=== PATIENT | female | born 1935 | race Caucasian/White ===

== ENCOUNTER → 2016-10-13 | Outpatient (CLI) | payer OTHER, MEDICARE | LOC: FIMAGING 15:05 | PROVIDERS: ATTEND Internal Medicine | DX: Z12.31 Encounter for screening mammogram for malignant neoplasm of breast (principal) | CPT/HCPCS: G0202 ==

== ENCOUNTER 2017-01-12 05:42 | Day surgery (SDC) | payer OTHER, MEDICARE ==
[2017-01-12 06:30] VITALS: PULSE 54
[2017-01-12] MEDS ORDERED: LR 1,000 ML IV ONE (06:31)
[2017-01-12] MEDS ORDERED: LIDOCAINE 1% 2 ML INJ ID PRN (06:31)
[2017-01-12] MEDS ORDERED: BUPIVACAINE 0.5% 30 ML SDV ONE (06:51)
[2017-01-12] MEDS ORDERED: NS 1,000 ML IV ONE (07:01)
[2017-01-12] MEDS ORDERED: ceFAZolin 2 GM/DEXTROSE 100 ML IV ONE (07:10)
[2017-01-12] MEDS ORDERED: ACETAMINOPHEN 500 MG TAB PO ONE (07:10)
--- NOTE | 2017-01-12 07:10 | PDANEPAE ---
ANE History of Present Illness knee arthroscopy, ANE Past Medical History - Cardiovascular History Hx Hypertension: Yes Hx Arrhythmias: No Hx Chest Pain: No Hx Coronary Artery / Peripheral Vascular Disease: No Hx CHF / Valvular Disease: No Hx Palpitations: No Cardiovascular History Comment: LBBB - Pulmonary History Hx COPD: No Hx Asthma/Reactive Airway Disease: No Hx Recent Upper Respiratory Infection: No Hx Oxygen in Use at Home: No Hx Sleep Apnea: No Sleep Apnea Screening Result - Last Documented: Negative - Neurologic History Hx Cerebrovascular Accident: No Hx Seizures: No Hx Dementia: No - Endocrine History Hx Diabetes: No - Renal History Hx Renal Disorders: Yes Renal History Comment: CHRONIC UTI. 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 BEGINNING OF GLAUCOMA. 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 ANAL SURGERY. PARATHYROIDECTOMY. LUMBAR FUSION ANE Review of Systems Review of Systems: - Exercise capacity METS (RN): 6 METS ANE Patient History - Allergies Allergies/Adverse Reactions: glucosamine Allergy (Verified 12/25/16 12:20) LEG SWELLING sodium Allergy (Verified 12/25/16 12:19) SENSITIVE HAS CKD - Home Medications Home Medications: Calcitriol [Calcitriol (*)] 0.25 mcg PO MOWEFR@12 02/13/12 [Last Taken 02/10/12 12:00] Diphenoxylate HCl/Atrop Sulf [Lomotil Tab (*)] 1 tab PO PRN PRN 02/13/12 [Last Taken Unknown] Furosemide [Lasix 40 MG (*)] 40 mg PO BID 02/13/12 [Last Taken 02/12/12 09:00] Terazosin HCl 2 mg PO HS 02/13/12 [Last Taken Unknown] Amlodipine Besylate DAILY 12/25/16 [Last Taken Unknown] Amlodipine Besylate DAILY 12/25/16 [Last Taken Unknown] - NPO status NPO Since - Liquids (Date): 01/12/17 NPO Since - Liquids (Time): 03:00 NPO Since - Solids (Date): 01/11/17 NPO Since - Solids (Time): 21:00 - Smoking Hx Smoking Status: Never smoked Marijuana use: No - Alcohol Use Alcohol Use: Other (1 drink per day) ANE Labs/Vital Signs - Vital Signs Blood Pressure: 155/76 Heart Rate: 54 Respiratory Rate: 16 O2 Sat (%): 94 Height: 154.94 cm Weight: 67.132 kg ANE Physical Exam - Airway Neck exam: FROM Mallampati Score: Class 2 Mouth exam: normal dental/mouth exam (upper front cap) - Pulmonary Pulmonary: clear to auscultation - Cardiovascular Cardiovascular: regular rate and rhythym - ASA Status ASA Status: II ANE Anesthesia Plan Anesthesia Plan: GA w LMA
--- NOTE | 2017-01-12 07:10 | PDHPUP ---
History & Physical Update H&P update statement: This history and physical update is based on an assessment of the patient which was completed after admission or registration (within 24 hours), but prior to the surgery/procedure. H&P update: H&P reviewed & patient examined, no change in patient's condition since H&P completed
[2017-01-12] MEDS ORDERED: MIDAZOLAM 2 MG/2 ML VIAL IVP ONE (07:17)
[2017-01-12] MEDS ORDERED: MIDAZOLAM 2 MG/2 ML VIAL ONE (07:18)
[2017-01-12] MEDS ORDERED: PROPOFOL 200 MG/20 ML VIAL ONE ×2 (07:21→07:35)
[2017-01-12] MEDS ORDERED: PHENYLEPHRINE 10 MG/ML SDV ONE (07:25)
[2017-01-12] MEDS ORDERED: ONDANSETRON 4 MG/2 ML VIAL ONE ×2 (08:26→10:03)
[2017-01-12] MEDS ORDERED: METOCLOPRAMIDE 10 MG/2 ML VIAL IVP PRN (08:37)
[2017-01-12] MEDS ORDERED: PROMETHAZINE HCL 25 MG SUPPR PR PRN (08:37)
[2017-01-12] MEDS ORDERED: ONDANSETRON 4 MG/2 ML VIAL IVP PRN (08:37)
[2017-01-12] MEDS ORDERED: ONDANSETRON DISINTEGRATING 4 MG TAB PO PRN (08:37)
[2017-01-12] MEDS ORDERED: PROMETHAZINE HCL 25 MG/ML INJ IVP PRN (08:37)
[2017-01-12] MEDS ORDERED: oxyCODONE IR 5 MG TAB PO PRN (08:37)
[2017-01-12] MEDS ORDERED: CYCLOBENZAPRINE 10 MG TAB PO PRN (08:37)
[2017-01-12] MEDS ORDERED: KETOROLAC 30 MG/1 ML SDV IVP PRN (08:37)
--- NOTE | 2017-01-12 08:37 | POSTOPPROG ---
Post Op Note Date of Operation: 01/12/17 Surgeon: Cortney Christine Anesthesiologist: angelina Anesthesia: LMA Pre-op Diagnosis: l mmt/lmt/oa Procedure: l knee scope with partial m/l menisectomy with chondroplasty and synovectom Inf/Abcess present in the surg proc area at time of surgery?: No Depth: Deep Incisional (Fascial) EBL: 50-100
[2017-01-12] MEDS ORDERED: HYDROmorphONE/DILAUDID 1 MG/ML INJ IVP PRN (08:44)
[2017-01-12] MEDS ORDERED: OXYCODONE/APAP 5/325 TAB PO PRN (08:44)
[2017-01-12] MEDS ORDERED: HYDROCODONE/APAP 5/325 TAB PO PRN (08:44)
[2017-01-12] MEDS ORDERED: NALOXONE HCL 0.4 MG/ML INJ IVP PRN (08:44)
[2017-01-12] MEDS ORDERED: fentaNYL 100 MCG/2 ML INJ IVP PRN (08:44)
[2017-01-12] MEDS ORDERED: LR 1,000 ML IV SCH (09:00)
--- NOTE | 2017-01-12 09:47 | GOP ---
[f rep st] OPERATIVE REPORT DATE OF OPERATION: 01/12/2017 SURGEON: Cortney Christine MD ANESTHESIA: LMA. 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 Lateral meniscal tear. Grade 4 chondral changes to patchy areas of the patellofemoral joint and of the medial compartment, as well as grade 3 chondral changes of the lateral compartment. PROCEDURE PERFORMED: Left knee arthroscopy with partial medial and partial lateral meniscectomy, cho ndroplasty. FINDINGS: INDICATIONS: This is an 81-year-old, very active female with left knee pain for several months that acutely worsened after a minor twist noted to the knee. MRI exam revealed medial meniscal tear, luis carlos g with some osteoarthritic changes. She wished to have surgery in order to resolve the problem. DESCRIPTION OF PROCEDURE: Patient brought to the operating room after the left side had been identif ied as correct side by the patient, nurse, and physician. Once in the operating room, she was placed under anesthesia using an LMA. Once asleep, a tourniquet was placed around the upper portion of lef t thigh, and both legs placed in appropriate leg huff. Left lower extremity was then sterilely pre pped and draped in usual fashion using GSI solution. Once prepped and draped, limb was exsanguinated , tourniquet inflated to 250 mmHg. An incision was made in the superomedial portion of the knee, wit h an outflow trocar inserted without difficulty. A second incision was made lateral to the patellar tendon, between the inferior pole of the patella and . The camera was introduced without d ifficulty. Inspection of the joint revealed an abundant amount of synovium within the knee, especial ly the anterior portion. ACL was noted to be intact. Inspection of the patellofemoral compartment r evealed some grade 3 chondral changes of the patella but some patchy grade 4 chondral changes to the trochlea, as well as some chondrocalcinosis. Inspection the medial compartment revealed tearing of t he body and posterior horn of the medial meniscus, with some patchy grade 4 chondral changes in the m edial compartment. There were grade 3 chondral changes in the lateral compartment with some minor fr aying noted of the posterior horn and body of the lateral meniscus. Therefore, a third incision was made medial to the patellar tendon, between the inferior pole of the patella and tibial plateau, and alternatingly using an arthroscopic biter and a shaver were used to debride and debulk tears of the m edial and lateral meniscus, remove the abundant amount of synovium from the anterior portion of the k nee, and remove the loose fragments of cartilage from all 3 compartments. Once completed, all instru ments were removed from the knee, with 30 cc of Marcaine infused in the knee joint. The 3 portal sit es were closed using 3-0 nylon suture in a yomkio-bj-trmin type stitch. The wounds were dressed with Xeroform, 4 x 4, wrapped in Kerlix. Tourniquet was deflated at 38 minutes. Leg was completely undr aped in the operating room. The leg was taken out of its leg huff, tourniquet removed from the thi gh, and an Gary wrap placed around the knee. Right leg was taken out of its leg huff. She was plac ed supine. She was woken up, extubated, transferred onto a stretcher, and sent to recovery room in g ood condition. TOURNIQUET TIME: 38 minutes. /[id number]/MODL
--- NOTE | 2017-01-12 10:38 | POSTANESTH ---
Post Anesthetic Evaluation Cardiovascular Status: Similar to Pre-Op Cond Respiratory Status: Normal, Stable Level of Consciousness/Mental Status: Can Participate in Eval Pain Control: Adequate, Prn Tx Ordered Nausea/Vomiting Control: Adequate, Prn Tx Ordered Complications Possibly Related to Anesthesia: None Noted
[2017-01-12 11:21] VITALS: RESP 16
[2017-01-12] MEDS ORDERED: ACETAMINOPHEN 325 MG TAB PO SCH (12:00)
[2017-01-12] MEDS ORDERED: OXYCODONE/APAP 5/325 TAB ONE (12:04)
[2017-01-12 13:20] VITALS: BP 143/54
[2017-01-12 18:44] VITALS: O2SAT 96
[2017-01-12 18:52] VITALS: TEMP 98.2
[2017-01-12] MEDS ORDERED: ASPIRIN 325 MG TAB PO SCH (21:00)
[2017-01-12] MEDS ORDERED: FAMOTIDINE 20 MG TAB PO SCH (21:00)
== END 2017-01-12 13:40 | disposition home or self-care (01) ==
LOC: FSGY 05:42
PROVIDERS: ATTEND Orthopaedic Surgery
PROC: 0SBD4ZZ Excision of Left Knee Joint, Percutaneous Endoscopic Approach (ICD-10-PCS; principal; 2017-01-12 07:15)
PROC: 0MQP4ZZ Repair Left Knee Bursa and Ligament, Percutaneous Endoscopic Approach (ICD-10-PCS; principal; 2017-01-12 07:15)
DX: S83.242D Other tear of medial meniscus, current injury, left knee, subsequent encounter (principal); M17.12 Unilateral primary osteoarthritis, left knee
CPT/HCPCS: J0171; J0690; J2250; J2370; J2405; J2704

== ENCOUNTER 2017-01-17 21:59 | Emergency (ER) | payer OTHER, MEDICARE ==
[2017-01-17 22:09] VITALS: TEMP 97.7
--- NOTE | 2017-01-17 22:39 | EDPHY ---
H & P Stated Complaint: Left knee surgery on 01/12 and now having left leg bruising Time Seen by Provider: 01/17/17 22:20 HPI/ROS: Chief Complaint: Leg swelling and bruising HPI: 81-year-old woman who is 6 days status post left meniscal repair by Dr. Christine. Patient noted increasing bruising and swelling of her left leg today. Is not painful. He has not had any chest pain or shortness of breath. No fevers or chills. No cough. She has been active. She has not been wearing compression stockings as she was concerned that this might affect her surgery. ROS: 10 point Review of Systems is negative except as noted in the HPI. PMH: Hypertension, renal insufficiency Social History: No smoking, no alcohol, no recreational drug use Family History: non-contributory Physical Exam: Gen: Awake, Alert, No Distress HEENT: Nose: no rhinorrhea Eyes: PERRLA, EOMI Mouth: Moist mucosa Neck: Supple, no JVD Chest: nontender, lungs clear to auscultation Heart: S1, S2 normal, no murmur Abd: Soft, non-tender, no guarding Back: no CVA tenderness, no midline tenderness Ext: Left leg is edematous with ecchymosis. She has got 3 surgical incision sites on her left knee which are non erythematous, there is no dehiscence. There is no discharge. Her left calf is nonpitting edema and is 3 cm in greater circumference than her right. It is non tenderness. She has 2+ dorsalis pedis pulses. Capillary refills less than 2 seconds. Skin: no rash Neuro: CN II-XII intact, Sensation grossly intact, Strength 5/5 in bilateral upper and lower extremities - Personal History Current Tetanus/Diphtheria Vaccine: Yes Current Tetanus Diphtheria and Acellular Pertussis (TDAP): Yes Tetanus Vaccine Date: unsure - Medical/Surgical History Hx Asthma: No Hx Chronic Respiratory Disease: No Hx Diabetes: No Hx Cardiac Disease: No Hx Renal Disease: Yes Hx Cirrhosis: No Hx Alcoholism: No Hx HIV/AIDS: No Hx Splenectomy or Spleen Trauma: No Other PMH: Left knee surgery, HTN, renal disease - Social History Smoking Status: Never smoked Constitutional: Initial Vital Signs Temperature (C) 36.5 C 01/17/17 22:07 Heart Rate 72 01/17/17 22:07 Respiratory Rate 16 01/17/17 22:07 Blood Pressure 169/74 H 01/17/17 22:07 O2 Sat (%) 95 01/17/17 22:07 O2 Delivery Mode Room Air Allergies/Adverse Reactions: glucosamine Allergy (Verified 01/17/17 22:11) LEG SWELLING sodium Allergy (Verified 01/17/17 22:11) SENSITIVE HAS CKD Home Medications: Medication Instructions Recorded Calcitriol [Calcitriol (*)] 0.25 mcg PO MOWEFR@12 02/13/12 Diphenoxylate HCl/Atrop Sulf 1 tab PO PRN PRN 02/13/12 [Lomotil Tab (*)] Furosemide [Lasix 40 MG (*)] 40 mg PO BID 02/13/12 Terazosin HCl 2 mg PO HS 02/13/12 Atorvastatin Calcium [Lipitor 20 20 mg PO DAILY #30 tab 02/17/12 mg (*)] Losartan Potassium [Cozaar 25 mg 25 mg PO DAILY #30 tab 02/17/12 (*)] Metoprolol Succinate Xr [Toprol Xl 50 mg PO DAILY #30 tab 02/17/12 50 mg (*)] Amlodipine Besylate DAILY 12/25/16 Amlodipine Besylate DAILY 12/25/16 Hydrocodone/APAP 5/325 [[place] 01/17/17 5/325 (*)] Enoxaparin [Lovenox 60 MG (*)] 70 mg SQ 1000,2200 #10 syr 01/18/17 Warfarin Sodium [Coumadin 5MG (*)] 5 mg PO DAILY16 #30 tab 01/18/17 Medical Decision Making - Diagnostics Imaging Results: Imaging Impressions Extremity Venous Study 01/17/17 22:37 Impression: Small volume deep venous thrombosis in the paired posterior tibial veins and likely one of the peroneal veins. No extension into the popliteal vein or deep venous system of the thigh. Findings discussed with Emergency Department physician, Bon Francis MD at 01/17/2017 23:32. Imaging: Discussed imaging studies w/ orthopedically impaired teacher Radiologist ED Course/Re-evaluation: 81-year-old with recent left knee surgery who now has DVTs in the calf. Given her immobilization and recent surgeries concerning for the possibility of propagation extension. I will start her on Coumadin and Lovenox. She has a history of renal insufficiency and therefore I cannot start her on a novel anticoagulant. She will follow up with primary care physician in 2-3 days for INR check. She has been given precautions for bleeding risk on Coumadin. - Data Points Medications Given: Discontinued Medications Warfarin Sodium (Coumadin) 5 mg PO EDNOW ONE Stop: 01/18/17 00:11 Last Admin: 01/18/17 00:25 Dose: 5 mg Departure - Departure Disposition: Home, Routine, Self-Care Clinical Impression: DVT (deep venous thrombosis) Condition: Good Instructions: Deep Venous Thrombosis (ED), Enoxaparin (By injection) Additional Instructions: Continue taking the Lovenox, 1 shot twice a day until your Coumadin levels are appropriate. Follow up with your primary care physician in 2-3 days for a check of your Coumadin levels. Return to the emergency depart for increasing bleeding, lightheaded, falls, headache, fevers, chills, or any other concerns. Follow up with Dr. Christine in 2-3 days for re-evaluation of your knee. Referrals: Rick Ramirez MD [Primary Care Provider] - As per Instructions Cortney Christine MD [Medical Doctor] - As per Instructions Prescriptions: Enoxaparin [Lovenox 60 MG (*)] 70 mg SQ 1000,2200 #10 syr Warfarin Sodium [Coumadin 5MG (*)] 5 mg PO DAILY16 #30 tab
[2017-01-18] MEDS ORDERED: ENOXAPARIN 60 MG/0.6 ML SYR SC ONE (00:10)
[2017-01-18] MEDS ORDERED: WARFARIN SODIUM 5 MG TAB PO ONE (00:10)
[2017-01-18] MEDS ORDERED: ENOXAPARIN 80 MG/0.8 ML SYR SC ONE (00:30)
[2017-01-18 01:05] VITALS: BP 165/60; PULSE 64; RESP 18; O2SAT 96
== END 2017-01-18 01:05 | disposition home or self-care (01) ==
DX: I82.442 Acute embolism and thrombosis of left tibial vein (principal); I10 Essential (primary) hypertension; Z79.01 Long term (current) use of anticoagulants
CPT/HCPCS: 93971; 96372; 99285; J1650

== ENCOUNTER 2017-05-31 17:15 | Emergency (ER) | payer OTHER, MEDICARE ==
[2017-05-31 18:15] VITALS: RESP 16
[2017-05-31] MEDS ORDERED: BUPIVACAINE 0.5% 10 ML SDV ONE (19:46)
--- NOTE | 2017-05-31 20:27 | EDPHY ---
H & P Time Seen by Provider: 05/31/17 19:26 HPI/ROS: CHIEF COMPLAINT: Right 5th finger injury HISTORY OF PRESENT ILLNESS: 82-year-old female presents to the emergency department with injury to the right 5th finger. The patient accidentally slammed her right 5th finger in the trunk of her car. The incident happened just prior to arrival. She states that she was able to straighten this out on her own. She was able to control the bleeding with firm direct pressure. She is unsure of her last tetanus shot. Denies any other trauma or injury. ROS: She has some tingling in her fingers which is chronic for her. She denies retained foreign body. Denies pain in her right wrist or elbow. Past Medical/Surgical History: Hypertension, renal disease, knee replacement Social History: Smoking Status: Never smoked Physical Exam: On examination the patient has laceration noted to the right 5th finger over the distal phalanx on the dorsal aspect. 1 cm laceration on either side. Slow active bleeding noticed. Normal sensation to light touch with normal 2 point discrimination. Tenderness with palpation at the distal phalanx especially over the D IP joint. Nontender over the mid phalanx or the other fingers. No obvious rotational deformities noted. Constitutional: Initial Vital Signs Temperature (C) 36.5 C 05/31/17 18:12 Heart Rate 60 05/31/17 18:12 Respiratory Rate 16 05/31/17 18:12 O2 Sat (%) 98 05/31/17 18:12 O2 Delivery Mode Room Air Allergies/Adverse Reactions: glucosamine Allergy (Verified 05/31/17 18:08) LEG SWELLING sodium Allergy (Verified 05/31/17 18:08) SENSITIVE HAS CKD Home Medications: Medication Instructions Recorded Calcitriol [Calcitriol (*)] 0.25 mcg PO MOWEFR@12 02/13/12 Diphenoxylate HCl/Atrop Sulf 1 tab PO PRN PRN 02/13/12 [Lomotil Tab (*)] Furosemide [Lasix 40 MG (*)] 40 mg PO BID 02/13/12 Terazosin HCl 2 mg PO HS 02/13/12 Atorvastatin Calcium [Lipitor 20 20 mg PO DAILY #30 tab 02/17/12 mg (*)] Losartan Potassium [Cozaar 25 mg 25 mg PO DAILY #30 tab 02/17/12 (*)] Metoprolol Succinate Xr [Toprol Xl 50 mg PO DAILY #30 tab 02/17/12 50 mg (*)] Amlodipine Besylate DAILY 12/25/16 Amlodipine Besylate DAILY 12/25/16 Calcitriol 05/31/17 Cephalexin [Keflex] 500 mg PO TID #21 cap 05/31/17 MDM/Departure - MDM Imaging Results: Imaging Impressions Finger X-Ray 05/31/17 19:04 Impression: Acute displaced dorsal plate fracture, distal phalanx, right fifth finger at the DIP joint. Underlying inflammatory osteoarthritis. Imaging: I viewed and interpreted images myself Procedures: Laceration repair. Verbal consent was obtained from the patient. The 2 cm laceration on the right 5th finger was anesthetized using digital block using 1% lidocaine without epinephrine 0.5% bupivacaine without epinephrine. The wound was irrigated with saline, draped and explored to its base with a gloved finger. There were no deep structures involved. No tendon injury was identified. The wound was repaired with 4 0 Ethilon, 4 sutures. The wound repair was simple. The procedure was performed by myself. Medications Given: Discontinued Medications Cephalexin HCl (Keflex) 500 mg PO EDNOW ONE PRN Reason: Protocol Stop: 05/31/17 20:35 Last Admin: 05/31/17 20:50 Dose: 500 mg Diphtheria/Tetanus/Acell Pertussis (Boostrix) 0.5 ml IM .ONCE ONE Stop: 05/31/17 20:35 Last Admin: 05/31/17 20:48 Dose: 0.5 ml ED Course/Re-evaluation: 82-year-old female presents to the emergency department with right 5th digit injury. X-rays reveal avulsion fracture off the distal phalanx. She has an overlying laceration consistent with open fracture. The wound was repaired, see procedure note. She was placed in Alumafoam splint, given a prescription for Keflex to prevent wound infection and given orthopedic hand surgical referral. The patient has seen Dr. Christine in the past and was given his information as well as the on-call hand surgeon, Dr. Sheppard. Patient's tetanus shot was also updated. The case was discussed with Dr. Jones, secondary supervising physician, who did not directly evaluate the patient but agrees with treatment and plan. - Depart Disposition: Home, Routine, Self-Care Clinical Impression: Avulsion fracture right distal phalanx Finger laceration Qualifiers: Encounter type: initial encounter Finger: little finger Damage to nail status: with damage Foreign body presence: without foreign body Laterality: right Qualified Code(s): S61.316A - Laceration without foreign body of right little finger with damage to nail, initial encounter Condition: Good Instructions: Care For Your Stitches (ED), Laceration (ED), Finger Fracture (ED ), Acute Wounds (ED) Additional Instructions: Wound Care Follow-Up: Removal of sutures in 10 days. Suture removal is complimentary in uncomplicated cases. Infection or abnormal findings would require reevaluation by the MD. In that case, you may be billed. Follow up with orthopedic hand surgeon tomorrow or Wednesday to recheck. Keflex 500 mg 3 times daily for 1 week to prevent infection. Your given a tetanus shot today in the emergency department. Return to the emergency department if you notice any signs or symptoms of infection such as redness, swelling, increased pain, fever, purulent drainage. Prescriptions: Cephalexin [Keflex] 500 mg PO TID #21 cap Referrals: Adam Sheppard MD [Medical Doctor] - 1-2 days without fail (Orthopedic hand surgeon on-call) Cortney Christine MD [Medical Doctor] - 1-2 days without fail (Orthopedic hand surgeon)
[2017-05-31] MEDS ORDERED: CEPHALEXIN 500 MG CAP PO ONE (20:34)
[2017-05-31] MEDS ORDERED: TDAP ADULT 0.5 ML INJ (BOOSTRIX) IM ONE (20:34)
[2017-05-31 21:01] VITALS: BP 165/73; PULSE 57; TEMP 97.3; O2SAT 93
== END 2017-05-31 21:01 | disposition home or self-care (01) ==
PROC: 0HQFXZZ Repair Right Hand Skin, External Approach (ICD-10-PCS; principal; 2017-05-31)
DX: S62.636A Displaced fracture of distal phalanx of right little finger, initial encounter for closed fracture (principal); S61.316A Laceration without foreign body of right little finger with damage to nail, initial encounter; I10 Essential (primary) hypertension; Z23 Encounter for immunization; W23.1XXA Caught, crushed, jammed, or pinched between stationary objects, initial encounter
CPT/HCPCS: 12001; 73140; 90471; 90715; 99283; L3925

== ENCOUNTER → 2017-09-17 | Outpatient (CLI) | payer OTHER, MEDICARE | LOC: FIMAGING 12:09 | PROVIDERS: ATTEND Internal Medicine | DX: S00.03XA Contusion of scalp, initial encounter (principal); G31.9 Degenerative disease of nervous system, unspecified ==

== ENCOUNTER → 2018-03-10 | Outpatient (CLI) | payer OTHER, MEDICARE | LOC: FIMAGING 15:35 | PROVIDERS: ATTEND Internal Medicine | DX: Z12.31 Encounter for screening mammogram for malignant neoplasm of breast (principal) ==